=== PATIENT | female | born 2000 | race Hispanic/Latino ===

== ENCOUNTER 2018-09-26 18:57 | Emergency (ER) | payer OTHER ==
[~2018-09-26] VITALS: Ht 172.7 cm; Wt 66.4 kg
[2018-09-26] MEDS ORDERED: DICY10IN2 PO (19:04)
[2018-09-26] MEDS ORDERED: bcp (19:04)
--- NOTE | 2018-09-26 21:02 | REPVR ---
EXAM: US Pelvis Complete, Transabdominal and US Pelvis, Transvaginal EXAM DATE/TIME: 09/26/2018 8:39 PM CLINICAL HISTORY: 18 years old, female; Pain; Pelvic pain; Additional info: Metrorrhagia, pelvic cramps TECHNIQUE: Real-time transabdominal and transvaginal pelvic ultrasound (complete) with image documentation. Transvaginal imaging was used for better evaluation of the endometrium and adnexa. COMPARISON: No relevant prior studies available. FINDINGS: Uterus/cervix: TransabdominalIy, the uterus measures 6 8 x 3.5 x 4.2 cm.. The endometrial stripe is not well seen. Endovaginally, the uterus measures 7.6 x 3.2 x 4.5 cm. The endometrial stripe measures 3 mm. A small amount of fluid noted in the endocervical canal. Right adnexa: Transabdominally, the right ovary is not seen as a separate structure. Endovaginally, the right ovary measures 2.5 x 1.4 x 3.3 cm. Subcentimeter follicles are present. Blood flow seen in the right ovary on color Doppler and pulse Doppler examination. Left adnexa: Transabdominally, the left ovary is not seen as a separate structure. Endovaginally, the left ovary measures 2.2 x 3.2 x 2.1 cm. Blood flow is seen in the left ovary on color Doppler and pulse Doppler examination. Free fluid: A trace of free fluid is seen in the posterior cul-de-sac. Bladder: Transabdominally, the bladder is poorly distended measuring 3.2 x 2.4 x 5.3 cm for a volume of 22 cc. IMPRESSION: 1. Normal pelvic ultrasound Electronically signed by: Rosa Cano On 09/26/2018 21:02:37 PM
[2018-09-26 21:19] VITALS: BP 126/62
[2018-09-26] MEDS ORDERED: KETO10TAB PO (21:25)
== END 2018-09-26 21:38 | disposition home or self-care (01) ==
LOC: M ED 18:57
DX: N92.0 Excessive and frequent menstruation with regular cycle (principal)